=== PATIENT | female | born 1950 | race Caucasian/White ===

== ENCOUNTER 2017-11-09 07:56 | Day surgery (SDC) | payer OTHER ==
[2017-11-02 15:14] VITALS: BMI 21.9
[2017-11-09] MEDS ORDERED: EPINEPHrine 1:1,000 1 MG/1 ML - 30ML VIAL (INJECTION) ONE (08:12)
[2017-11-09] MEDS ORDERED: LIDOCAINE HCL 1%, 10 MG/ML (20ML VIAL) ONE (08:12)
[2017-11-09] MEDS ORDERED: LIDOCAINE 1%/EPI 1:100000 (20 ML MULTI DOSE VIAL) ONE ×3 (08:13→11:39)
[2017-11-09] MEDS ORDERED: MIDAZOLAM HCL 2 MG/2 ML SINGLE DOSE VIAL ONE (08:19)
[2017-11-09] MEDS ORDERED: ePHEDrine SULFATE 50 MG/1 ML AMPULE ONE (09:59)
[2017-11-09] MEDS ORDERED: ROCURONIUM BROMIDE 50 MG/5 ML VIAL ONE (11:46)
[2017-11-09] MEDS ORDERED: DESFLURANE GAS 240 ML BOTTLE IH ONE (12:11)
[2017-11-09] MEDS ORDERED: MINERAL OIL 25 ML OIL ONE ×2 (12:43→13:30)
[2017-11-09] MEDS ORDERED: KETOROLAC TROMETHAMINE 30 MG/1 ML VIAL ONE (13:25)
[2017-11-09] MEDS ORDERED: DEXAMETHASONE SOD PHOSPHATE 4 MG/1 ML VIAL ONE (13:25)
[2017-11-09] MEDS ORDERED: NEOSTIGMINE METHYLSULFATE 0.5 MG/ML - 10 ML MDV ONE (13:25)
[2017-11-09] MEDS ORDERED: ONDANSETRON 4 MG/2 ML VIAL ONE ×2 (13:25)
[2017-11-09] MEDS ORDERED: GLYCOPYRROLATE 0.2 MG/1 ML VIAL ONE ×2 (13:27)
[2017-11-09] MEDS ORDERED: PROMETHAZINE HCL 25 MG/1 ML VIAL IVPUSH PRN (14:03)
[2017-11-09] MEDS ORDERED: ONDANSETRON 4 MG/2 ML VIAL IVPUSH PRN (14:03)
--- NOTE | 2017-11-09 14:19 | OP ---
Operative Note - Note: Operative Date: 11/09/17 Pre-Operative Diagnosis: aquired chest wall deformity, unsatisfactory appearance of face and abdomen Operation: subcutaneous tissue transfer from abdomen to bilateral breast reconstruction, excision of abdominal skin, and lower face and neck lift. Findings: asymmetric breast reconstruction. Excess skin and tissue to face, neck, and abdomen. Implants: none Post-Operative Diagnosis: Same as Pre-op Surgeon: Elliot Callejas Medical Claims Representative: Latasha Gallagher Anesthesiologist/PAYMENT PROCESSOR: Javid Neumann Anesthesia: General, MAC Specimens Removed: abdominal skin, neck and chin skin Estimated Blood Loss (mls): 30 Operative Report Dictated: Yes
[2017-11-09] MEDS ORDERED: oxyCODONE HCL 5 MG TABLET PO PRN ×2 (14:24→14:25)
[2017-11-09] MEDS ORDERED: oxyCODONE HCL 5 MG TABLET PO ONE (15:41)
[2017-11-09] MEDS ORDERED: oxyCODONE HCL 5 MG TABLET ONE (15:42)
[2017-11-09 17:11] VITALS: TEMP 98.1
[2017-11-09 18:06] VITALS: BP 114/63; PULSE 78
--- NOTE | 2017-11-11 07:51 | OP ---
DATE OF OPERATION: 11/09/2017 SURGEON: Marcello Callejas MD AVIONICS TEST TECHNICIAN SURGEON: Latasha Gallagher PA-C PREOPERATIVE DIAGNOSIS: 1. Bilateral acquired chest wall deformity status post bilateral mastectomy. 2. Asymmetry of reconstructed chest wall. 3. Mechanical complication of breast implants. POSTOPERATIVE DIAGNOSIS: 1. Bilateral acquired chest wall deformity status post bilateral mastectomy. 2. Asymmetry of reconstructed chest wall. 3. Mechanical complication of breast implants. OPERATIVE PROCEDURE: 1 Right breast reconstruction utilizing other [place] ([place]. [id number]). 2 Left breast [place] ([place]. [address]-UU). OPERATIVE INDICATION: Patient is a woman who underwent bilateral mastectomy and now presents with gross asymmetry of the chest wall requiring the above procedures. The risks and benefits, surgical versus nonsurgical alternatives, as well as the material complications of the procedure were described to the patient on multiple occasions preoperatively. She agreed to the planned procedure. OPERATIVE PROCEDURE IN DETAIL: Patient was take to the operating room, and after the induction of general anesthesia in supine position, both arms were extended and padded. Venodyne boots were placed. At this point, attention was turned to the chest wall. The mastectomy scars were injected with 1% local lidocaine anesthesia with 1:100,000 epinephrine. The lower abdominal area from previous scar deformity was also marked for a large incision in order to harvest tissue from the lower abdomen. When areas were anesthetized, an incision was made on the right breast down through the skin through the subcutaneous tissues into the deep area over the pectoralis major muscle and down to the chest wall. Space was then created for reconstructive purposes. The exact same procedure was carried out on the left breast, also carrying the incision down to the pectoralis major muscle and to the chest wall laterally. Attention was then turned to the lower abdomen. A lower abdominal incision was made incorporating the previous scar and incision on the lower abdomen, and then, extending to the hips. A large block of tissue was incised, and then tissue was then harvested for reconstructive purposes. This block of tissue was incised and tissue transferred to the back table and readied for reconstruction. The tissue was cleansed, prepared, and then transferred to the right and left breasts independently, and the right breast in the superior, medial, central, and lateral portions as well as the left breast independently transferring it to the superior, medial portion of the left breast. The mastectomy scars were closed with interrupted sutures. The donor area was also closed with multiple layers of suture with 2-0 Vicryl suture to the deep tissue, 3-0 in the deep dermal fascia, 4-0 in the subcuticular fascia. Patient tolerated the procedure well. She was awakened, extubated, and transferred to the recovery room in satisfactory condition. MARCELLO CALLEJAS M.D. [id number]
--- NOTE | 2017-11-11 08:06 | OP ---
DATE OF OPERATION: 11/09/2017 SURGEON: Manda Callejas MD DELIVERY AND MAIL SORTER SURGEON: Latasha Gallagher PA-C PREOPERATIVE DIAGNOSIS: Facial aging deformity. POSTOPERATIVE DIAGNOSIS: Facial aging deformity. OPERATIVE PROCEDURE: Facelift and neck lift. OPERATIVE PROCEDURE IN DETAIL: The patient was take to the operating room, and after the induction of general anesthesia in supine position, the entire face was prepped and draped in the usual fashion for a face lifting procedure. The incisions were planned previously in the sitting position with the patients knowledge, in the preauricular and retrotragal area as well as the postauricular area. After injecting the face with 1% local lidocaine anesthesia with 1:200,000 epinephrine and allowing topical anesthesia, an incision was made under optical magnification of 2.5 power down through the skin through subcutaneous tissues of the face, and the standard face software release manager procedure in the subcutaneous plane was carried out. Hemostasis was meticulously obtained throughout with a bipolar electrocautery, and the skin and neck area were lifted. Suction-assisted lipectomy by hand was carried out over the entire neck area removing fatty tissue in the central and lateral portions of the neck itself. The skin and subcutaneous tissue were then advanced and draped into a new, more aesthetic position, trimmed, and then tacked into position using 3-0 Biosyn suture on the deep dermis, 4-0 Prolene suture on the retroauricular area, and 5-0 nylon running suture in the preauricular area. Patient showed good shape and contour at the end of the procedure. All wounds were dressed sterilely with a compression dressing and fluff dressing with cotton and mineral oil. A circumferential Tom bandage and Coban were placed. She was awakened, extubated, and transferred to the recovery room in satisfactory condition and tolerated the procedure well. MANDA CALLEJAS M.D. [id number]
--- NOTE | 2017-11-11 10:54 | PATH ---
Surgical Pathology Report Patient Name: SHAHBAZ BLAIR [facility]. Rec. #: [id number] /Age/Gender: 1950 (Age: 67) / F Account: [id number] Location: [facility] Taken: 11/09/2017 Received: 11/09/2017 Reported: 11/11/2017 Physicians: Elliot Callejas Specimen(s) Received ABDOMINAL SKIN Clinical History Breast cancer Final Diagnosis SKIN AND SOFT TISSUE, ABDOMEN, ABDOMINOPLASTY: UNREMARKABLE SKIN AND SUBCUTANEOUS ADIPOSE TISSUE (GROSS ONLY). Electronically Signed Nba Walters M.D. Gross Description Received in formalin labeled "abdominal skin," is a 126 g, 23.0 x 7.0 cm vasquez, elliptical, unoriented portion of skin excised to depth of 1.3 cm. The epidermal surface is unremarkable. Sectioning of the underlying soft tissue reveals unremarkable yellow, lobulated fat. No lesions are identified. No sections are submitted, gross only. /11/10/2017 saudi11/10/2017
== END 2017-11-09 18:17 | disposition home or self-care (01) ==
LOC: FASU 07:56
PROVIDERS: ATTEND Plastic Surgery
PROC: 0HRV07Z Replacement of Bilateral Breast with Autologous Tissue Substitute, Open Approach (ICD-10-PCS; principal; 2017-11-09 10:17)
PROC: 0W020ZZ Alteration of Face, Open Approach (ICD-10-PCS; 2017-11-09 10:17)
PROC: 0W060ZZ Alteration of Neck, Open Approach (ICD-10-PCS; 2017-11-09 10:17)
DX: M95.4 Acquired deformity of chest and rib (principal); Z90.13 Acquired absence of bilateral breasts and nipples; N65.1 Disproportion of reconstructed breast; T85.41XA Breakdown (mechanical) of breast prosthesis and implant, initial encounter; Y83.8 Other surgical procedures as the cause of abnormal reaction of the patient, or of later complication, without mention of misadventure at the time of the procedure; Y92.89 Other specified places as the place of occurrence of the external cause; L98.8 Other specified disorders of the skin and subcutaneous tissue
CPT/HCPCS: 88300-TC; 94760